=== PATIENT | male | born 1965 | race African-American/Black ===

== ENCOUNTER 2020-09-09 19:30 | Inpatient (IN) | payer OTHER, MEDICAID, SELFPAY ==
[~2020-09-09] VITALS: Ht 185.4 cm; Wt 73.0 kg
[2020-09-09 19:37] VITALS: BP_SYST 102
--- NOTE | 2020-09-09 19:50 | NUR ---
Placed in room 7 . Placed on foam gun operator, blood pressure machine and pulse oximeter. To gown for exam. Side rails up. Report given to Wendy JAUREGUI.
--- NOTE | 2020-09-09 20:00 | NUR ---
PATIENT BIB CAREGIVER FROM HOME C/O ALOC STARTING YESTERDAY AT 10AM. PER CAREGIVER, PATIENT LETHARGIC, LESS RESPONSIVE, AND SLOW TO ANSWER WITH WORDS. PATIENT ABLE TO FOLLOW COMMANDS AND AMBULATE WITH ASSISTANCE. PATIENT HX OF METASTATIC THYROID CANCER, RECEIVING CHEMO WITH LAST TREATMENT EARLIER TODAY. PATIENT SCLERA APPEAR TO BE JAUNDICE. PATIENT PLACED ON INSURANCE PROCESSOR, BREATHING EVEN AND UNLABORED, NO SIGNS OF ACUTE DISTRESS. WILL CONTINUE TO MONITOR.
--- NOTE | 2020-09-09 20:10 | NUR ---
ER Dr. ARECHIGA at bedside examining patient.
[2020-09-09] MEDS ORDERED: NACL 0.9% 1,000 ML IV ONE ×2 (20:15→22:00)
--- NOTE | 2020-09-09 20:20 | NUR ---
# 20 gauge angiocath placed to LEFT AC. Use of asceptic technique. Opsite placed over site. Blood return noted. Blood, BLOOD CULTURES, LACTIC for lab drawn from site. Flushed with 10 cc of normal saline. No evidence of infiltration noted. Patient tolerated well.
[2020-09-09 20:41] LABS: BASOPHILS % (AUTO) 0.1 % (0.0-2.0); HEMOGLOBIN 8.6 g/dL (14.0-18.0); LYMPHOCYTES # (AUTO) 0.3 K/uL (1.0-5.5); LYMPHOCYTES % (AUTO) 5.8 % (20.5-51.5); MEAN CORPUSCULAR HEMOGLOBIN 34 pg (27-31); MEAN CORPUSCULAR HGB CONC 33 % (32-36); MEAN CORPUSCULAR VOLUME 103 fL (79.0-98.0); MONOCYTES # (AUTO) 0.1 K/uL (0.0-1.0); MONOCYTES % (AUTO) 1.9 % (1.7-9.3); NEUTROPHILS # (AUTO) 4.2 K/uL (1.8-7.7); NEUTROPHILS % (AUTO) 92.2 % (40.0-70.0); PLATELET COUNT (AUTO) 354 K/uL (130-430); RED BLOOD CELL COUNT(AUTO) 2.51 MIL/uL (4.2-6.2); RED CELL DISTRIBUTION WIDTH 19.4 % (9.0-15.0); WHITE BLOOD COUNT (AUTO) 4.6 K/uL (4.8-10.8)
--- NOTE | 2020-09-09 20:42 | NUR ---
Patient transported to radiology via WHEELCHAIR, accompanied by STAFF.
[2020-09-09 21:01] LABS: ANION GAP 14 (5-15); CALCIUM 10.7 mg/dL (8.4-11.0); CHLORIDE 96 mmol/L (98-107); CREATININE 0.98 mg/dL (0.55-1.30); GLUCOSE 200 mg/dL (70-99); POTASSIUM 4.8 mmol/L (3.5-5.1); SODIUM SERUM 132 mmol/L (136-145); UREA NITROGEN, BLOOD 13 mg/dL (8-21)
--- NOTE | 2020-09-09 21:01 | NUR ---
Returned from radiology, back to [facility].
[2020-09-09 21:07] LABS: ALANINE AMINOTRANSFERASE 10 U/L (12-78); ALBUMIN 2.1 g/dL (3.4-4.8); ASPARTATE AMINOTRANSFERASE 42 U/L (10-37); TOTAL BILIRUBIN 0.1 mg/dL (0.0-1.0)
[2020-09-09 21:11] LABS: GFR AFRICAN AMERICAN 102 mL/min (>90)
[2020-09-09 21:34] LABS: ALCOHOL, BLOOD < 3 mg/dL (<10)
--- NOTE | 2020-09-09 21:37 | NUR ---
COVID SWAB COLLECTED AND SENT TO LAB.
[2020-09-09 22:01] LABS: BILIRUBIN,URINE NEGATIVE (NEGATIVE); BLOOD, URINE NEGATIVE (NEGATIVE); CLARITY/URINE CLEAR (CLEAR); COLOR,URINE YELLOW (YELLOW); GLUCOSE,URINE NEGATIVE (NEGATIVE); KETONES,URINE TRACE (NEGATIVE); LEUKOCYTE ESTERASE ,URINE NEGATIVE (NEGATIVE); NITRITE, URINE NEGATIVE (NEGATIVE); PROTEIN URINE NEGATIVE (NEGATIVE); UROBILINOGEN,URINE 0.2 (0.2-1.0)
[2020-09-09 22:09] LABS: BARBITURATE, URINE NEGATIVE (NEG <=200); BENZODIAZEPINE, URINE NEGATIVE (NEG <=150); CANNABINOID, URINE NEGATIVE (NEG <=50); COCAINE, URINE NEGATIVE (NEG <=150); METHAMPHETAMINES SCREEN,URINE NEGATIVE (NEG <=500); OPIATE, URINE POSITIVE (NEG <=100); PHENCYCLIDINE SCREEN,URINE NEGATIVE (NEG <=25); UR TRICYCLIC ANTIDEPRESSANTS NEGATIVE (NEG <=300); URINE AMPHETAMINE NEGATIVE (NEG <=500); URINE METHADONE NEGATIVE (NEG <=200); URINE OXYCODONE SCREEN NEGATIVE (NEG <=100); URINE PROPOXYPHENE SCREEN NEGATIVE (NEG <=300)
--- NOTE | 2020-09-09 22:18 | NUR ---
Patient will be admitted to care of DR. ANDRADE. Admitted to TELE unit. Will go to room PENDING. Belongings list completed. Complete and up to date summary report printed. SBAR report to be given at bedside with opportunity for questions.
--- NOTE | 2020-09-09 22:30 | NUR ---
LAB AT BEDSIDE FOR BLOOD DRAW
--- NOTE | 2020-09-09 22:41 | NUR ---
DR. ANDRADE AT BEDSIDE SPEAKING WITH PATIENT AND FAMILY MEMBER.
[2020-09-09] MEDS ORDERED: ARIP15TA8 PO (22:45)
[2020-09-09] MEDS ORDERED: ONDA4TAB5 PO (22:45)
[2020-09-09] MEDS ORDERED: VALP250S3 PO (22:45)
[2020-09-09] MEDS ORDERED: PRO40 PO (22:45)
[2020-09-09] MEDS ORDERED: LEVO125T8 PO (22:45)
[2020-09-09] MEDS ORDERED: CALC0.258 PO (22:45)
[2020-09-09] MEDS ORDERED: CALC200T47 PO (22:45)
[2020-09-09] MEDS ORDERED: ERGO500020 PO (22:45)
[2020-09-09] MEDS ORDERED: HYDR-3917 PO (22:45)
--- NOTE | 2020-09-09 22:46 | NUR ---
Medication reconciliation completed with information provided by SISTER/CAREGIVER. Any prior medication reconciliation on file was reviewed and corrected.
[2020-09-09] MEDS ORDERED: NALOXONE HCL 0.4 MG/ML AMP (NARCAN) IVP PRN (23:00)
[2020-09-09] MEDS ORDERED: HYDROcodone/ACETAMIN 5-325 MG TAB (NORCO/ VICODIN) PO PRN (23:00)
--- NOTE | 2020-09-09 23:11 | NUR ---
Patient's code status is FULL CODE paperwork completed and placed in chart.
--- NOTE | 2020-09-10 00:23 | NUR ---
PATIENT URINATED IN BEDSIDE URINAL WITH ASSISTANCE. TOTAL OUTPUT 400ML OF CLEAR YELLOW URINE
--- NOTE | 2020-09-10 00:25 | NUR ---
PATIENT GOING TO ROOM 133A.
--- NOTE | 2020-09-10 00:35 | NUR ---
Transfer to TELE via ACLS protocol. Licensed nurse present. IV present no signs or symptoms of infiltration.
--- NOTE | 2020-09-10 00:50 | NUR ---
ADMISSION NOTES RECEIVED PATIENT FROM ER FOR DEHYDRATION AND CONFUSION. PATIENT ORIENTED TO NAME. BREATHING UNLABORED ON 2L NC. DENIES ANY PAIN. VITAL SIGNS STABLE. ADMISSION PROCESS INITIATED. BED IN LOWEST LOCKED POSITION WITH ALARM ON. PATIENT ORIENTED TO CALL LIGHT USE.
[2020-09-10 00:52] VITALS: BP_SYST 127
[2020-09-10] MEDS ORDERED: KCL 20 mEq in D5/0.45NS 1000mL 1,000 ML IV ONE (01:18)
[2020-09-10] MEDS: KCL 20 mEq in D5/0.45NS 1000mL 1,000 ML IV SCH ×3 (01:24→18:41)
--- NOTE | 2020-09-10 01:24 | NUR ---
IVF IVF STARTED ORDERED. IV LINE INTACT AND PATENT.
--- NOTE | 2020-09-10 03:20 | NUR ---
ROUNDS PATIENT RESTING IN BED. NO DISTRESS NOTED. IVF INFUSING. BED ALARM ON.
[2020-09-10] MEDS: LEVOTHYROXINE SODIUM 0.075 MG TABLET PO SCH (06:04)
[2020-09-10] MEDS: traMADol HCL HCL 50 MG TABLET (ULTRAM) PO SCH ×4 (06:04→18:29)
[2020-09-10] MEDS: LEVOTHYROXINE SODIUM 0.1 MG TABLET PO SCH (06:04)
--- NOTE | 2020-09-10 06:24 | NUR ---
CLOSING NOTES PATIENT NEEDS ATTENDED. IVF INFUSING WITH IV LINE INTACT AND PATENT. BED IN LOWEST LOCKED POSITION WITH ALARM ON. CALL LIGHT WITH IN REACH.
[2020-09-10 06:42] LABS: BASOPHILS % (AUTO) 0.3 % (0.0-2.0); HEMATOCRIT 23.5 % (36-54); HEMOGLOBIN 7.7 g/dL (14.0-18.0); LYMPHOCYTES # (AUTO) 0.6 K/uL (1.0-5.5); LYMPHOCYTES % (AUTO) 15.1 % (20.5-51.5); MEAN CORPUSCULAR HEMOGLOBIN 34 pg (27-31); MEAN CORPUSCULAR HGB CONC 33 % (32-36); MEAN CORPUSCULAR VOLUME 104 fL (79.0-98.0); MONOCYTES # (AUTO) 0.4 K/uL (0.0-1.0); MONOCYTES % (AUTO) 11.8 % (1.7-9.3); NEUTROPHILS # (AUTO) 2.7 K/uL (1.8-7.7); NEUTROPHILS % (AUTO) 72.8 % (40.0-70.0); PLATELET COUNT (AUTO) 332 K/uL (130-430); RED BLOOD CELL COUNT(AUTO) 2.26 MIL/uL (4.2-6.2); RED CELL DISTRIBUTION WIDTH 19.5 % (9.0-15.0); WHITE BLOOD COUNT (AUTO) 3.7 K/uL (4.8-10.8)
[2020-09-10 06:52] LABS: CALCIUM 9.9 mg/dL (8.4-11.0); CREATININE 0.81 mg/dL (0.55-1.30); PHOSPHORUS 4.3 mg/dL (2.7-4.5); POTASSIUM 4.6 mmol/L (3.5-5.1)
[2020-09-10 06:53] LABS: TOTAL IRON BIND. CAPACITY 189 ug/dL (250-450)
--- NOTE | 2020-09-10 07:50 | NUR ---
OPENING NOTES: RECEIVED REPORT FROM DIRECTOR MEDICAL SCIENCE NURSE. PATIENT IS AWAKE, ALERT LAYING DOWN IN BED. TOLERATED OXYGEN ON 2L VIA NASAL CANNULA. IV LINE PATENT AND INTACT WITH NO INFILTRATION NOTED. DENIES ANY PAIN AT THE MOMENT. PATIENT IN STABLE CONDITION. SAFETY, FALL, AND ASPIRATION PRECAUTIONS ARE IN PLACE. BED LOCKED IN LOWEST POSITION AND CALL LIGHT IN REACH. WILL CONTINUE TO MONITOR PATIENT FOR ANY CHANGES.
[2020-09-10 08:00] VITALS: BP_SYST 111
[2020-09-10] MEDS: VALPROIC ACID ORAL SYRUP 250 MG/5 ML UDC PO SCH (08:52)
[2020-09-10] MEDS: calcitrioL 0.25 MCG CAPSULE PO SCH (08:52)
[2020-09-10] MEDS: CALCIUM 500 MG/TAB PO SCH ×2 (08:53→21:18)
[2020-09-10] MEDS: PANTOPRAZOLE SODIUM 40 MG TAB PO SCH (08:53)
[2020-09-10] MEDS ORDERED: LEVOTHYROXINE SODIUM 0.125 MG TABLET PO SCH (09:00)
--- NOTE | 2020-09-10 09:58 | NUR ---
Nutrition Update Flo Scale 16 noted. Pt admitted for dehydration. Diet: mechanical soft BMI: 21.4 kg/m2 RD to follow per nutrition care standards.
[2020-09-10 11:34] VITALS: BP_SYST 104
--- NOTE | 2020-09-10 14:21 | NUR ---
Spoke w/ patient's sister-he is staying with her, she is looking for housing for him locally. He had chemotherapy yesterday at the [facility] in [place], near [facility] where his oncologist practices. He is scheduled for chemotherapy in 2 weeks in [place].
[2020-09-10 16:29] VITALS: BP_SYST 107
--- NOTE | 2020-09-10 19:30 | NUR ---
CLOSING NOTES: PATIENT IS AWAKE, ALERT LAYING DOWN IN BED. TOLERATED OXYGEN ON 2L VIA NASAL CANNULA. IV LINE PATENT AND INTACT WITH NO INFILTRATION NOTED. DENIES ANY PAIN AT THE MOMENT. PATIENT IN STABLE CONDITION. SAFETY, FALL, AND ASPIRATION PRECAUTIONS ARE IN PLACE. BED LOCKED IN LOWEST POSITION AND CALL LIGHT IN REACH. WILL ENDORSE PATIENT CARE TO ONCOMING RELOCATION DIRECTOR NURSE.
--- NOTE | 2020-09-10 19:30 | NUR ---
Opening note Patient is awake, resting in bed no distress. Non labored breathing on 2L NC. He is AOx2 to name and . When asked if in pain he is unable to answer; no facial grimacing noted, VSS. IVF infusing via IV to LAC. Urinal is on rebollar on side rail, side rails up 2x, call light w/in reach, bed alarm on and updated board.
--- NOTE | 2020-09-10 19:30 | NUR ---
Opening note Received patient awake, resting in besd, no distress. Non labored breathing on room 2LNC. IVF infusing via IV to LAC. Side rails up 3x, bed is locked in lowest position, bed alarm on and call light w/in reach. When asked if he has pain, he was unable to understand question, no facial grimacing, no distress. Updated board.
[2020-09-10 20:00] VITALS: BP_SYST 119
[2020-09-10] MEDS: ENOXAPARIN SODIUM 40 MG/0.4 ML SYRINGE SUBCUT SCH (21:19)
--- NOTE | 2020-09-10 21:24 | NUR ---
Meds Due meds given; Patient swallowed tablet with water and tolerated SQ Lovenox. Side effect indication reviewed (Lovenox) and patient unable to verbalize understanding; he replied "I'm ok". safety precautions in place, wctm.
[2020-09-11] MEDS: traMADol HCL HCL 50 MG TABLET (ULTRAM) PO SCH ×5 (00:47→23:18)
[2020-09-11 00:52] VITALS: BP_SYST 129
--- NOTE | 2020-09-11 05:31 | NUR ---
Dr. Tavares S/W Dr. Tavares and informed K-rider infusing and done 0630. Also report patient drank her colonoscopy prep of Miralax and bowel movements are clear with sandlike particles; He gave orders for lab BMP and Mg and also tap water enema x1; TORB Addendum: 09/11/20 at 0535 by Elizabeth Garcia RN Wrong entry; this note is for another patient.
[2020-09-11] MEDS: KCL 20 mEq in D5/0.45NS 1000mL 1,000 ML IV SCH ×2 (05:41→17:29)
[2020-09-11] MEDS: LEVOTHYROXINE SODIUM 0.075 MG TABLET PO SCH (06:55)
[2020-09-11] MEDS: LEVOTHYROXINE SODIUM 0.1 MG TABLET PO SCH (06:55)
--- NOTE | 2020-09-11 07:20 | NUR ---
closing note Endorsed report, patient stable, safety precautions in place. Morning meds given and he was cooperative, swallowed tablets.
--- NOTE | 2020-09-11 07:40 | NUR ---
opening notes pt awake and alert. [place]. nonlabored breathing noted, receiving o2 at 2lpm via nasal cannula, tolerating well. iv line intact and patent, fluids running as ordered. no acute distress noted. all needs met. call light in reach. scd's on and in place. fall and aspiration precautions in place
[2020-09-11 07:49] LABS: BASOPHILS % (AUTO) 0.5 % (0.0-2.0); EOSINOPHILS % (AUTO) 0.1 % (0.0-4.0); HEMATOCRIT 27.1 % (36-54); HEMOGLOBIN 8.8 g/dL (14.0-18.0); LYMPHOCYTES # (AUTO) 0.6 K/uL (1.0-5.5); LYMPHOCYTES % (AUTO) 15.5 % (20.5-51.5); MEAN CORPUSCULAR HEMOGLOBIN 34 pg (27-31); MEAN CORPUSCULAR HGB CONC 33 % (32-36); MEAN CORPUSCULAR VOLUME 103 fL (79.0-98.0); MONOCYTES # (AUTO) 0.4 K/uL (0.0-1.0); MONOCYTES % (AUTO) 11.6 % (1.7-9.3); NEUTROPHILS # (AUTO) 2.7 K/uL (1.8-7.7); NEUTROPHILS % (AUTO) 72.3 % (40.0-70.0); PLATELET COUNT (AUTO) 344 K/uL (130-430); RED BLOOD CELL COUNT(AUTO) 2.62 MIL/uL (4.2-6.2); RED CELL DISTRIBUTION WIDTH 18.8 % (9.0-15.0); WHITE BLOOD COUNT (AUTO) 3.7 K/uL (4.8-10.8)
[2020-09-11 07:56] LABS: CALCIUM 10.8 mg/dL (8.4-11.0); CREATININE 0.74 mg/dL (0.55-1.30); POTASSIUM 4.2 mmol/L (3.5-5.1)
[2020-09-11 08:00] VITALS: BP_SYST 109
[2020-09-11] MEDS: CALCIUM 500 MG/TAB PO SCH ×2 (08:41→21:51)
[2020-09-11] MEDS: calcitrioL 0.25 MCG CAPSULE PO SCH (08:41)
[2020-09-11] MEDS: VALPROIC ACID ORAL SYRUP 250 MG/5 ML UDC PO SCH (08:41)
[2020-09-11] MEDS: PANTOPRAZOLE SODIUM 40 MG TAB PO SCH (08:41)
--- NOTE | 2020-09-11 08:45 | NUR ---
routine meds administered as ordered per md, education given, tolerated well.
[2020-09-11] MEDS ORDERED: ERGOCALCIFEROL 8000 UNITS/ML ORAL SOLUTION, 60 ML BOTTLE PO SCH (09:00)
[2020-09-11 09:28] LABS: FOLATE (FOLIC ACID) 2.4 ng/mL (>3.0)
[2020-09-11 12:00] VITALS: BP_SYST 127
[2020-09-11 16:00] VITALS: BP_SYST 102
--- NOTE | 2020-09-11 16:27 | NUR ---
Dietitian Recommendations * Recommend continuing mechanical soft diet w/ Ensure Enlive BID (ONS provides 700 kcal/day, 40 gm protein/day) SARAH LANDRY Please refer to Nutrition Assessment for details. Addendum: 09/11/20 at [address] Amended: Links added.
--- NOTE | 2020-09-11 18:37 | NUR ---
closing notes pt resting in bed, chest rise and fall noted, easily awaken. nonlabored breathing noted, receiving o2 at 2lpm via nasal cannula, tolerating well. iv line intact and patent, no signs of infiltration noted, fluids running as ordered. no acute distress noted. all needs met. call light in reach. scd's on and in place. fall and aspiration precautions in place. will endorse to noc nurse.
--- NOTE | 2020-09-11 19:45 | NUR ---
OPENING NOTES RECEIVED REPORT FROM DAY RN. PATIENT LAYING IN BED WATCHING TV. RESPIRATIONS EVEN AND UNLABORED ON RA. NO SIGNS OF DISTRESS NOTED. LAC IV 20G PATENT AND INTACT RUNNING IVF. NO SIGNS OF INFILTRATION NOTED. PT HAS HEARING DEFICIT. PT FAMILY STATES THAT HE DID NOT BRING HEARING AID. SKIN INTACT. PATIENT CURRENTLY USING URINAL. BED IN LOW AND LOCKED POSITION. CALL LIGHT WITHIN REACH. SAFETY PRECAUTIONS IN PLACE. WILL CONTINUE TO MONITOR.
[2020-09-11 20:00] VITALS: BP_SYST 109
[2020-09-11] MEDS: ENOXAPARIN SODIUM 40 MG/0.4 ML SYRINGE SUBCUT SCH (21:52)
[2020-09-12] VITALS: BP_SYST 113
--- NOTE | 2020-09-12 02:00 | NUR ---
ROUNDED ON PT PT SLEEPING IN BED WITH RESPIRATIONS EVEN AND UNLABORED ON RA. NO SIGNS OF DISTRESS NOTED. BED IN LOW AND LOCKED POSITION. CALL LIGHT WITH IN REACH. SAFETY/FALL PRECAUTIONS IN PLACE. WILL CONTINUE TO MONITOR.
[2020-09-12] MEDS: KCL 20 mEq in D5/0.45NS 1000mL 1,000 ML IV SCH ×3 (02:13→22:12)
[2020-09-12] MEDS: LEVOTHYROXINE SODIUM 0.1 MG TABLET PO SCH (06:01)
[2020-09-12] MEDS: traMADol HCL HCL 50 MG TABLET (ULTRAM) PO SCH ×3 (06:01→18:28)
[2020-09-12] MEDS: LEVOTHYROXINE SODIUM 0.075 MG TABLET PO SCH (06:01)
--- NOTE | 2020-09-12 06:22 | NUR ---
CLOSING NOTES PT LAYING IN BED WITH RESPIRATIONS EVEN AND UNLABORED ON RA. LEFT IV PATENT AND INTACT RUNNING IVF. NO SIGNS OF INFILTRATION NOTED. BED IN LOW AND LOCKED POSITION. NC WITH PT AND EDUCATED ON USE AND PLACEMENT IF NEEDED. PT VERBALIZED UNDERSTANDING. CALL LIGHT WITHIN REACH. SAFETY PRECAUTIONS IN PLACE. ALL NEEDS MET THROUGHOUT THE NIGHT. WILL ENDORSE TO DAY RN.
[2020-09-12 08:00] VITALS: BP_SYST 110
[2020-09-12] MEDS: CALCIUM 500 MG/TAB PO SCH ×2 (09:07→20:35)
[2020-09-12] MEDS: VALPROIC ACID ORAL SYRUP 250 MG/5 ML UDC PO SCH (09:08)
[2020-09-12] MEDS: PANTOPRAZOLE SODIUM 40 MG TAB PO SCH (09:08)
[2020-09-12] MEDS: calcitrioL 0.25 MCG CAPSULE PO SCH (09:08)
[2020-09-12 12:20] VITALS: BP_SYST 113
[2020-09-12 15:55] VITALS: BP_SYST 113
[2020-09-12 16:18] VITALS: BP_SYST 117
--- NOTE | 2020-09-12 19:30 | NUR ---
OPENING NOTE RECEIVED PATIENT REPORT FROM DAY SHIFT RN. PATIENT IS RESTING IN HIS BED. NO SIGNS OF ACUTE DISTRESS NOTED. PATIENT IS BREATHING EASY AND UNLABORED. CHEST RISE AND FALL SYMMETRICALLY. NO SIGNS OF RESPIRATORY DISTRESS NOTED. IV IS INTACT AND RUNNING ORDERED RATE. NO SIGNS OF INFILTRATION NOTED. CALL LIGHT WITHIN REACH. BED ALARM IS ON. BED IS LOCKED AND PLACED IN THE LOWEST POSITION. SAFETY, FALL, AND ASPIRATION PRECAUTIONS IN PLACED. WILL CONTINUE TO MONITOR.
[2020-09-12 20:00] VITALS: BP_SYST 116
[2020-09-12] MEDS: ENOXAPARIN SODIUM 40 MG/0.4 ML SYRINGE SUBCUT SCH (20:35)
[2020-09-13] MEDS: traMADol HCL HCL 50 MG TABLET (ULTRAM) PO SCH ×5 (00:15→23:20)
[2020-09-13 00:57] VITALS: BP_SYST 101
[2020-09-13] MEDS: LEVOTHYROXINE SODIUM 0.075 MG TABLET PO SCH (06:12)
[2020-09-13] MEDS: LEVOTHYROXINE SODIUM 0.1 MG TABLET PO SCH (06:12)
[2020-09-13 06:55] LABS: BASOPHILS % (AUTO) 0.5 % (0.0-2.0); EOSINOPHILS % (AUTO) 0.4 % (0.0-4.0); HEMATOCRIT 23.5 % (36-54); HEMOGLOBIN 7.7 g/dL (14.0-18.0); MEAN CORPUSCULAR HEMOGLOBIN 34 pg (27-31); MEAN CORPUSCULAR HGB CONC 33 % (32-36); MEAN CORPUSCULAR VOLUME 103 fL (79.0-98.0); MONOCYTES # (AUTO) 0.8 K/uL (0.0-1.0); MONOCYTES % (AUTO) 14.8 % (1.7-9.3); NEUTROPHILS # (AUTO) 3.4 K/uL (1.8-7.7); NEUTROPHILS % (AUTO) 65.3 % (40.0-70.0); PLATELET COUNT (AUTO) 345 K/uL (130-430); RED BLOOD CELL COUNT(AUTO) 2.29 MIL/uL (4.2-6.2); RED CELL DISTRIBUTION WIDTH 18.5 % (9.0-15.0); WHITE BLOOD COUNT (AUTO) 5.3 K/uL (4.8-10.8)
[2020-09-13 07:03] LABS: ALBUMIN 1.9 g/dL (3.4-4.8); CALCIUM 10.3 mg/dL (8.4-11.0); CREATININE 0.7 mg/dL (0.55-1.30); POTASSIUM 4.3 mmol/L (3.5-5.1); TOTAL BILIRUBIN 0.4 mg/dL (0.0-1.0)
[2020-09-13 08:00] VITALS: BP_SYST 104
[2020-09-13] MEDS: KCL 20 mEq in D5/0.45NS 1000mL 1,000 ML IV SCH (09:15)
[2020-09-13] MEDS: calcitrioL 0.25 MCG CAPSULE PO SCH (09:16)
[2020-09-13] MEDS: CALCIUM 500 MG/TAB PO SCH ×2 (09:16→22:03)
[2020-09-13] MEDS: VALPROIC ACID ORAL SYRUP 250 MG/5 ML UDC PO SCH (09:17)
[2020-09-13] MEDS: PANTOPRAZOLE SODIUM 40 MG TAB PO SCH (09:18)
[2020-09-13 12:16] VITALS: BP_SYST 101
[2020-09-13 16:18] VITALS: BP_SYST 104
[2020-09-13 20:00] VITALS: BP_SYST 112
--- NOTE | 2020-09-13 21:00 | NUR ---
Patient on MECHANICAL soft po diet sitting up in bed eating snacks , assist as needed no S/sx of aspiration / .
[2020-09-13] MEDS: ENOXAPARIN SODIUM 40 MG/0.4 ML SYRINGE SUBCUT SCH (22:04)
--- NOTE | 2020-09-13 23:07 | NUR ---
LOVENOX 40 MG SUB Q. administer as ordered , no s/sx of bleeding noted skin dry warm .
--- NOTE | 2020-09-13 23:31 | NUR ---
ULTRAM 50 MG PO administer for pain general , also position change helpful .
[2020-09-14 00:07] VITALS: BP_SYST 98
--- NOTE | 2020-09-14 01:12 | NUR ---
Hourly Rounding patient awake on & off HOB elevated chest movement symmetrical SAFETY MEASURES implemented call grace with patient / .
--- NOTE | 2020-09-14 05:39 | NUR ---
Patient Resting chest movement symmetrical call grace with patient HOB elevated monitor .
[2020-09-14] MEDS: LEVOTHYROXINE SODIUM 0.075 MG TABLET PO SCH (06:55)
[2020-09-14] MEDS: traMADol HCL HCL 50 MG TABLET (ULTRAM) PO SCH (06:55)
[2020-09-14] MEDS: LEVOTHYROXINE SODIUM 0.1 MG TABLET PO SCH (06:55)
[2020-09-14 07:00] LABS: BASOPHILS % (AUTO) 0.5 % (0.0-2.0); EOSINOPHILS % (AUTO) 0.4 % (0.0-4.0); HEMATOCRIT 24.6 % (36-54); HEMOGLOBIN 8.1 g/dL (14.0-18.0); LYMPHOCYTES % (AUTO) 21.4 % (20.5-51.5); MEAN CORPUSCULAR HEMOGLOBIN 34 pg (27-31); MEAN CORPUSCULAR HGB CONC 33 % (32-36); MEAN CORPUSCULAR VOLUME 102 fL (79.0-98.0); MONOCYTES # (AUTO) 0.6 K/uL (0.0-1.0); MONOCYTES % (AUTO) 13.5 % (1.7-9.3); NEUTROPHILS % (AUTO) 64.2 % (40.0-70.0); PLATELET COUNT (AUTO) 357 K/uL (130-430); RED CELL DISTRIBUTION WIDTH 19.5 % (9.0-15.0); WHITE BLOOD COUNT (AUTO) 4.8 K/uL (4.8-10.8)
--- NOTE | 2020-09-14 08:00 | NUR ---
OPENING NOTES: PATIENT RESTING IN BED. NO SIGNS OF ACUTE DISTRESS NOTED. DENIES ANY DISCOMFORT AT THIS TIME. FALL AND SAFETY PRECAUTION REINFORCED. CALL LIGHT WITHIN REACH
[2020-09-14 09:00] VITALS: BP_SYST 104
[2020-09-14] MEDS: PANTOPRAZOLE SODIUM 40 MG TAB PO SCH (09:28)
[2020-09-14] MEDS: CALCIUM 500 MG/TAB PO SCH (09:28)
[2020-09-14] MEDS: calcitrioL 0.25 MCG CAPSULE PO SCH (09:28)
[2020-09-14] MEDS: VALPROIC ACID ORAL SYRUP 250 MG/5 ML UDC PO SCH (09:28)
[2020-09-14 11:53] VITALS: BP_SYST 94
--- NOTE | 2020-09-14 14:34 | NUR ---
PHYSICAL THERAPY CO-SIGN The Physical Therapy Progress Notes documented by Deputy Sheriff Lieutenant have been reviewed. Reviewed/Co-Signed by: Esequiel Huang Documentation Done by: SASHA YAO PTA Addendum: 09/14/20 at 1434 by Esequiel Huang PT Amended: Links added.
[2020-09-14 16:05] VITALS: BP_SYST 96
[2020-09-14 17:24] VITALS: BP_SYST 96
--- NOTE | 2020-09-14 19:20 | NUR ---
CLOSING NOTES: PATIENT RESTING IN BED. NO SIGNS OF ACUTE DISTRESS NOTED. FALL AND SAFETY PRECAUTION REINFORCED. CALL LIGHT WITHIN REACH.
--- NOTE | 2020-09-14 20:07 | NUR ---
D/C Patient Patient given medication reconciliation form and D/C instructions. Exit Care provided. Patient'sister verbalized understanding. MD discussed with patient sister the results and treatment provided. Ambulatory using [facility] for discharge to home. Patient in stable condition, ID band removed. IV catheter removed, intact and dressing applied, no active bleeding. written Rx given. Patient sister educated on pain management. All belongings sent with patient sister.
== END 2020-09-14 20:07 | disposition home or self-care (01) | DRG 70 ==
LOC: SED 19:30 → STU 22:15
PROVIDERS: ADMIT Family Medicine; ATTEND Family Medicine
DX: G93.41 Metabolic encephalopathy (principal); E43 Unspecified severe protein-calorie malnutrition; S42.212A Unspecified displaced fracture of surgical neck of left humerus, initial encounter for closed fracture; S42.292A Other displaced fracture of upper end of left humerus, initial encounter for closed fracture; D64.9 Anemia, unspecified; E86.0 Dehydration; C73 Malignant neoplasm of thyroid gland; Z20.822 Contact with and (suspected) exposure to COVID-19; E03.9 Hypothyroidism, unspecified; X58.XXXA Exposure to other specified factors, initial encounter; Z85.850 Personal history of malignant neoplasm of thyroid; Z68.21 Body mass index [BMI] 21.0-21.9, adult; Y93.89 Activity, other specified; Y92.89 Other specified places as the place of occurrence of the external cause; Y99.8 Other external cause status
CPT/HCPCS: 36415; 70450-TC; 71045; 76376; 80048; 80053; 80164; 80307; 81003; 82140; 82607; 82728; 82746; 83540; 83550; 83605; 83735; 84100; 84484; 85025; 87040-TC; 93005; 96360; 96361; 97116-GP; 97530-GP; 99285; G0378; G0482; J1650